=== PATIENT | male | born 1955 | race Caucasian/White ===

== ENCOUNTER 2017-01-25 14:49 | Emergency (ER) | payer MEDICARE ==
[2017-01-25] MEDS ORDERED: 0.9 % SODIUM CHLORIDE 1,000 ML BAG IV ONE (14:51)
[2017-01-25] MEDS ORDERED: HYDROMORPHONE HCL 1MG/ML **SYRINGE IVP ONE (14:53)
--- NOTE | 2017-01-25 14:59 | Emergency Department Record ---
History of Present Illness - General Chief Complaint: Fall Injury Stated Complaint: FELL OF ROOF (YESTERDAY) Time Seen by Provider: 01/25/17 14:50 Source: Patient Mode of Arrival: Ambulatory Limitations: No limitations - History of Present Illness Initial Comments: 61 yo male presents after a fall off his roof yesterday. He was trimming a branch that was rubbing his house. He states he fell landing on his feet and backside. He denies and LOC. Witnessed by a friend. He has pain from the mid back downward. He reports a history of back surgery at [facility] about 7 years ago. He has chronic pain, leg leg numbness, urinary incontinence from the prior medical history. He states no significant changes in those symptoms but his back pain is increased significantly. No other extremity complaints. His surgery was in 2009. He reports his surgeon is no longer in [place]. 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 Witnessed: No Place Fall Occurred: Home Loss of Consciousness: None Prolonged Down Time?: No Symptoms Prior to Fall: None Location: Back Quality: Aching Associated Symptoms: Denies - [place] Coma Scale Eye Response: (4) Open spontaneously Motor Response: (6) Obeys commands Verbal Response: (5) Oriented Oziel Total: 15 - Related Data Previous Rx's Medication Instructions Recorded Cyclobenzaprine HCl [Flexeril] 10 mg PO TID #20 tablet 01/25/17 Hydrocodone/Acetaminophen [[place] 1 each PO Q8H #20 tablet 01/25/17 7.5-325 Tablet] Allergies Allergy/AdvReac Type Severity Reaction Status Date / Time No Known Drug Allergies Allergy Verified 01/25/17 14:57 Review of Systems Constitutional: Denies: Chills, Fever, Malaise, Weakness Eyes: Denies: Eye discharge ENT: Denies: Congestion, Throat pain Respiratory: Denies: Cough Cardiovascular: Denies: Chest pain, Palpitations, Syncope Endocrine: Denies: Fatigue, Polydipsia, Polyuria Gastrointestinal: Denies: Abdominal pain, Diarrhea, Nausea, Vomiting Genitourinary: Denies: Dysuria, Frequency, Hematuria Musculoskeletal: Reports: Back pain. Denies: Neck pain Skin: Denies: Bruising, Change in color, Rash Neurological: Reports: Tingling (chronic left leg), Weakness (chronic left leg) . Denies: Headache, Numbness Psychiatric: Reports: Anxiety Hematological/Lymphatic: Denies: Blood Clots, Easy bleeding, Easy bruising Physical Exam - General General Appearance: Alert, Oriented x3, Cooperative, No acute distress, Other ( no confusion, clear speech, good historian regarding current and PMHx.) Limitations: No limitations - Head Head exam: Atraumatic, Normocephalic, Normal inspection - Eye Eye exam: Normal appearance, PERRL. negative: Conjunctival injection, Periorbital swelling, Periorbital tenderness, Scleral icterus - ENT ENT exam: Normal exam, Mucous membranes moist Ear exam: Normal external inspection Nasal Exam: Normal inspection Mouth exam: Normal external inspection Teeth exam: Normal inspection Throat exam: Normal inspection - Neck Neck exam: Normal inspection, Full ROM. negative: Tenderness - Respiratory Respiratory exam: Normal lung sounds bilaterally. negative: Respiratory distress, Rhonchi, Stridor, Wheezes - Cardiovascular Cardiovascular Exam: Regular rate, Normal rhythm, Normal heart sounds Peripheral Pulses: 2+: Radial (R), Radial (L) - GI/Abdominal GI/Abdominal exam: Soft. negative: Tenderness - Rectal Rectal exam: Deferred - exam: Deferred - Extremities Extremities exam: Full ROM, Normal capillary refill. negative: Normal inspection (atrophy of the left thigh), Joint swelling, Tenderness Image of Full Body: 1 - tenderness, no step off - Back Back exam: Reports: Muscle spasm, Paraspinal tenderness, Tenderness, Vertebral tenderness. Denies: Full ROM - Neurological Neurological exam: Alert, Motor sensory deficit (chronic LLE sensory loss), Normal gait, Oriented X3 - Psychiatric Psychiatric exam: Anxious - Skin Skin exam: Dry, Intact, Normal color, Warm Course - Reevaluation(s) Reevaluation #1: Due to mechanism Trauma Alert Activated No records on the [facility] EMR [facility] contacted for search for prior records 01/25/17 15:01 01/25/17 15:02 Reevaluation #2: 02/13/2009 L3 to S1 decompression and fusion Dr Olivia 01/25/17 15:24 No acute changes on the CBC. 01/25/17 15:29 Reevaluation #3: Pain improved to 2-3/10 HR improved to [address] appears relaxed and calm. NAD 01/25/17 15:35 CR/BUN and GFR in the normal range CK normal ETOH 0.233 HCO3 17 with AG 20 01/25/17 15:42 Reevaluation #4: The HCT was negative for acute fracture, small left frontal STS The Cervical Spine was negative for acute fracture, degen changes at C5-[address] was negative for any acute injury, fracture or PTx The Abdomen and Pelvis CT was negative for acute injury, fracture of the spine or hardware failure 01/25/17 15:55 HR now 89 01/25/17 16:02 The patient is doing very well He is up with controlled pain He will be referred to the [facility] Medical Decision Making - Lab Data Result diagrams: 01/25/17 15:00 01/25/17 15:00 Disposition Disposition: Discharge Clinical Impression: Low back strain Qualifiers: Encounter type: initial encounter Qualified Code(s): S39.012A - Strain of muscle, fascia and tendon of lower back, initial encounter Disposition: Home, Self-Care Condition: (1) Good Instructions: Low Back Strain (ED) Additional Instructions: Call the number provided and ask for follow up at the [facility] Return if you have uncontrolled pain or any new concerns Prescriptions: Cyclobenzaprine HCl [Flexeril] 10 mg PO TID #20 tablet Hydrocodone/Acetaminophen [[place] 7.5-325 Tablet] 1 each PO Q8H #20 tablet Referrals: MEGHA LARSON M.D. [MEDICAL DOCTOR] - Forms: Patient Portal Access Time of Disposition: 16:17 Quality - Quality Measures Quality Measures: N/A - Blood Pressure Screening View Details: Yes Blood Pressure Classification: Hypertensive Reading Systolic Measurement: 123 Diastolic Measurement: 99 Screening for High Blood Pressure: < Pre-Hypertensive BP, F/U Documented > [ G8950] Pre-Hypertensive Follow-up Interventions: Referral to alternative/primary care provider.
[2017-01-25 15:24] LABS: BASO % 0.3 % (0-6); EOS % 1.4 % (0-6); GRAN % 68.4 % (47-80); HEMATOCRIT 44.3 % (42.0-52.0); HEMOGLOBIN 15.1 gm/dl (14.0-18.0); LYMPH % 25.5 % (16-45); MEAN CELL VOLUME 90.4 fl (81-97); MEAN CORPUSCULAR HEMOGLOBIN 30.8 pg (27-33); MEAN CORPUSCULAR HGB CONC 34.1 g/dl (32-36); MEAN PLATELET VOLUME 10.2 fl (7.4-10.4); MONO % 4.4 % (0-9); PLATELET COUNT 295 K/uL (130-400); RED CELL DISTRIBUTION WIDTH 18.1 % (11.5-14.5); WHITE BLOOD COUNT W/O DIFF 10.5 K/uL (4.2-12.2)
[2017-01-25 15:37] LABS: INR 0.87; PARTIAL THROMBOPLASTIN TIME 35.3 SECONDS (24.5-39.1); PROTHROMBIN TIME (PATIENT) 9.4 SECONDS (9.5-12.1)
[2017-01-25 15:38] LABS: ALB/GLOB RATIO 1.3 (1.1-1.8); ALBUMIN 5.2 gm/dL (3.5-5.0); ALKALINE PHOSPHATASE 134 U/L (38-126); ALT/SGPT 66 U/L (21-72); ANION GAP 20.3 (7-16); AST/SGOT 66 U/L (17-59); BILIRUBIN,TOTAL 0.92 mg/dL (0.2-1.3); BLOOD UREA NITROGEN 10 mg/dL (9-20); CARBON DIOXIDE 17.7 mmol/L (22-30); CREATINE PHOSPHOKINASE 138 U/L (55-170); CREATININE 0.7 mg/dL (0.66-1.25); EST GLOMERULAR FILTRATION RATE > 60 ml/min; GLUCOSE,RANDOM 83 mg/dL (70-110); TOTAL PROTEIN 9.1 gm/dL (6.3-8.2)
[2017-01-25 15:40] LABS: ALCOHOL 0.233 g/dL (0-0.010)
[2017-01-25 15:45] LABS: CKMB 2.6 ug/L (0-6)
--- NOTE | 2017-01-26 13:49 | CT SCAN REPORT ---
EXAM: HEAD CT WITHOUT CONTRAST HISTORY: FELL OF ROOF TEN FEET HIGH YESTERDAY. NO LOSS OF CONSCIOUSNESS. TECHNIQUE: Contiguous axial images from the cerebral convexities to the foramen magnum were obtained without contrast. Comparison: None. Encounter: Initial. FINDINGS: Mild generalized atrophy of the brain. No acute intracranial hemorrhage, mass effect, or midline shift. No CT evidence of acute infarct. The ventricles, basal cisterns, and sulci are within normal limits. Soft tissue swelling left frontal scalp. No fracture. The paranasal sinuses are unremarkable. IMPRESSION: 1. NO ACUTE INTRACRANIAL PROCESS. 2. SMALL LEFT FRONTAL SCALP CONTUSION. JOB NUMBER: [id number] MTDD
--- NOTE | 2017-01-26 14:22 | CT SCAN REPORT ---
EXAM: ABDOMEN AND PELVIS CT WITH IV CONTRAST HISTORY: FELL OF ROOF TEN FEET HIGH, LOW BACK PAIN. TECHNIQUE: Contiguous axial images from the lung bases to the symphysis pubis were obtained after the uneventful intravenous administration of 100 ml of Omnipaque 300. Comparison: None. Encounter: Initial. FINDINGS: Decreased attenuation throughout the liver consistent with fatty infiltration. The spleen is unremarkable. 1 cm unilocular cyst upper pole left kidney. 2 mm nonobstructing calculus lower pole left kidney. Smaller cyst interpolar region left kidney. Nonobstructing 1 mm calculus mid right kidney. The adrenals, pancreas, and gallbladder are normal. The visualized loops of small and large bowel are of normal caliber with no wall thickening. Normal appendix. Mild colonic diverticulosis. No free intraperitoneal air or fluid. Moderate aortoiliac calcification. The prostate gland is enlarged and nodular in appearance measuring up to 4.2 x 4.0 cm. Posterior fusion from the L3 to S1 level. No acute fracture or hardware failure. IMPRESSION: 1. NO ACUTE PROCESS OF THE ABDOMEN OR PELVIS. 2. FATTY LIVER. 3. NONOBSTRUCTING INTRARENAL CALCULI. 4. OTHER INCIDENTAL FINDINGS. JOB NUMBER: [id number] MTDD
--- NOTE | 2017-01-26 14:25 | CT SCAN REPORT ---
EXAM: CHEST CT WITH IV CONTRAST HISTORY: FELL OF ROOF TEN FEET HIGH. LOW BACK PAIN. TECHNIQUE: Contiguous axial images from the thoracic inlet to the upper abdomen were obtained without contrast. Comparison: None. Encounter: Initial. FINDINGS: The lungs are clear. The heart is not enlarged and there is no pericardial effusion. Mild coronary artery calcification. No evidence of acute traumatic thoracic aortic injury. No enlarged lymph nodes in the thorax. No acute fracture. IMPRESSION: NO ACUTE INTRATHORACIC PROCESS. JOB NUMBER: [id number] MTDD
--- NOTE | 2017-01-26 14:31 | CT SCAN REPORT ---
EXAM: CERVICAL SPINE CT WITH TWO DIMENSIONAL REFORMATS HISTORY: FELL OF ROOF TEN FEET HIGH. TECHNIQUE: Contiguous axial images from the skull base to the T2 level were obtained without contrast. Sagittal and coronal two dimensional reformatted images were obtained for better anatomic delineation. Comparison: None. Encounter: Initial. FINDINGS: Anatomic alignment of the cervical spine. Severe disk disease at C5- C6 with disk space narrowing, end plate osteophytes and subcortical cysts. Moderate disk disease at C3-C4. The C1-C2 articulation appears appropriate and the odontoid process is intact. No acute fractures or subluxation. No narrowing of the osseous central canal at any level. Neural foraminal stenosis most pronounced at C3-C4 and C5-C6 on the right. IMPRESSION: 1. NO ACUTE FRACTURE OR SUBLUXATION OF THE CERVICAL SPINE. 2. MULTILEVEL DEGENERATIVE DISK DISEASE MOST PRONOUNCED AT C3-C4 AND C5-C6. 3. VARYING DEGREES OF NEURAL FORAMINAL STENOSIS. JOB NUMBER: [id number] MTDD
== END 2017-01-25 16:35 | disposition home or self-care (01) ==
LOC: ER 14:49
DX: S39.012A Strain of muscle, fascia and tendon of lower back, initial encounter (principal); W17.89XA Other fall from one level to another, initial encounter; Y92.008 Other place in unspecified non-institutional (private) residence as the place of occurrence of the external cause; Z79.899 Other long term (current) drug therapy
CPT/HCPCS: 70450; 71260; 72125; 74177; 80053; 80320; 82550; 82553; 85025; 85610; 85730; 96374; 99284; J1170; J7030

== ENCOUNTER 2017-05-27 15:12 | Emergency (ER) | payer SELFPAY ==
--- NOTE | 2017-05-27 15:16 | Emergency Department Record ---
History of Present Illness - General Stated Complaint: ABDOMINAL PAIN Time Seen by Provider: 05/27/17 15:14 Source: Patient Mode of Arrival: Ambulatory Limitations: No limitations - History of Present Illness Initial Comments: 61 yo male presents with left testicle ache for 2 weeks. He denies and trauma. The testicle was initially not tender. The last 2 days the testicle has become swollen and painful with pain radiating to the abdomen. No fevers. The swelling is limited to his left side. No fevers. No dysuria. No diarrhea. He has never had testicular swelling in the past. He does self cath his bladder due to a neurogenic bladder from a prior back surgery. MD Complaint: Abdominal pain -: Days(s) (pain for 2 days with swelling for about 2 weeks) Location: LLQ Radiation: LLQ Migration to: LLQ Severity: Moderate Quality: Aching Consistency: Constant Improves With: Nothing Worsens With: Other (worse with touching or moving the testicle) Associated Symptoms: Denies other symptoms - Related Data Previous Rx's Medication Instructions Recorded Hydrocodone/Acetaminophen [[place] 1 each PO Q6H #20 tablet 05/27/17 7.5-325 Tablet] Hydrocodone/Acetaminophen [[place] 1 each PO Q6H #20 tablet 05/27/17 7.5-325 Tablet] Ibuprofen [Motrin 600Mg] 600 mg PO Q6H #30 tablet 05/27/17 Levofloxacin [Levaquin] 750 mg PO DAILY #14 tab 05/27/17 Allergies Allergy/AdvReac Type Severity Reaction Status Date / Time No Known Drug Allergies Allergy Verified 05/27/17 15:25 Review of Systems Constitutional: Denies: Chills, Fever, Malaise, Weakness Eyes: Denies: Eye discharge ENT: Denies: Congestion, Throat pain Respiratory: Denies: Cough Cardiovascular: Denies: Chest pain, Palpitations, Syncope Endocrine: Denies: Fatigue, Polydipsia, Polyuria Gastrointestinal: Reports: As per HPI, Abdominal pain. Denies: Constipation, Diarrhea, Hematemesis, Hematochezia, Melena, Nausea, Vomiting Genitourinary: Reports: Testicular pain, Testicular mass (enlarged left testicle ). Denies: Discharge, Dysuria, Frequency, Hematuria Musculoskeletal: Denies: Arthralgia, Back pain, Neck pain Skin: Denies: Bruising, Change in color, Pruritus Neurological: Denies: Confusion, Headache Psychiatric: Denies: Anxiety Hematological/Lymphatic: Denies: Blood Clots, Easy bleeding, Easy bruising, Swollen glands Past Medical History - SOCIAL HISTORY Smoking Status: Current every day smoker Drug Use Detail:: Marijuana - RESPIRATORY Hx Respiratory Disorders: No - CARDIOVASCULAR Hx Cardio Disorders: No - NEURO Hx Neuro Disorders: No - GI Hx GI Disorders: No - Hx Genitourinary Disorders: No - ENDOCRINE Hx Endocrine Disorders: No - MUSCULOSKELETAL Hx Musculoskeletal Disorders: Yes Hx Back Injury: Yes - PSYCH Hx Psych Problems: No - HEMATOLOGY/ONCOLOGY Hx Hematology/Oncology Disorders: No Physical Exam - General General Appearance: Alert, Oriented x3, Cooperative, No acute distress Limitations: No limitations - Head Head exam: Atraumatic, Normocephalic, Normal inspection - Eye Eye exam: Normal appearance. negative: Conjunctival injection, Scleral icterus - ENT ENT exam: Normal exam, Mucous membranes moist Ear exam: Normal external inspection Nasal Exam: Normal inspection Mouth exam: Normal external inspection - Neck Neck exam: Normal inspection, Full ROM. negative: Tenderness - Respiratory Respiratory exam: Normal lung sounds bilaterally. negative: Respiratory distress - Cardiovascular Cardiovascular Exam: Regular rate, Normal rhythm, Normal heart sounds - GI/Abdominal GI/Abdominal exam: Soft, Tenderness. negative: Distended, Guarding - Rectal Rectal exam: Deferred - exam: Circumcision, Scrotal swelling (Left scrotal swelling, the scrotal tissue appears normal, no abnormal erythema, the scrobum is soft, the testicle is enlarged and firm), Testicular tenderness, Other (The left testicle is moderately enlarged with tenderness and very little cremasteric reflex, the right is non tender and not swollen with normal reflex). negative: Normal inspection Course - Reevaluation(s) Reevaluation #1: 05/27/17 15:26 STAT US ordered for left testicular swelling and tenderness 05/27/17 16:13 No acute changes on the BMP The prelim UA is N and LE positive 05/27/17 16:31 The CBC was reviewed The WBC count is 16 05/27/17 16:52 The US report is pending. The patient is resting very comfortably. Pain is well controlled. Given the CBC and UA indicate infection antibiotics ordered. 05/27/17 17:13 The US was reviewed. No torsion. The examination is consistent with epididymitis/orchitis with increased flow in the epididymal area. The patient is well appearing, and non toxic without fever He will be DC home on Levaquin 2 weeks A culture was sent on the UA He was advised on scrotal support, pain control, antibiotics, follow up and reasons to return or be seen He will be referred to the Urology Clinic at [facility] The patient is doing very well at [place] and is comfortable with the plan 05/27/17 17:25 Medical Decision Making - Lab Data Result diagrams: 05/27/17 15:47 05/27/17 15:47 Disposition Disposition: Discharge Clinical Impression: Epididymo-orchitis Disposition: Home, Self-Care Condition: (1) Good Instructions: Epididymo-Orchitis (ED) Additional Instructions: Return to the ER if you have increased pain, fever, swelling or concerns Use tight support underwear Take the antibiotics daily as instructed You are being referred to the Urology Clinic at [facility] Prescriptions: Hydrocodone/Acetaminophen [[place] 7.5-325 Tablet] 1 each PO Q6H #20 tablet Hydrocodone/Acetaminophen [[place] 7.5-325 Tablet] 1 each PO Q6H #20 tablet Ibuprofen [Motrin 600Mg] 600 mg PO Q6H #30 tablet Levofloxacin [Levaquin] 750 mg PO DAILY #14 tab Referrals: CECILY AMBROSIO M.D. [MEDICAL DOCTOR] - [facility] [Provider Group] Forms: Patient Portal Access Time of Disposition: 17:19 Quality - Quality Measures Quality Measures: N/A - Blood Pressure Screening Does Patient Have Any of the Following: No Blood Pressure Classification: Hypertensive Reading Systolic Measurement: 135 Diastolic Measurement: 91 Screening for High Blood Pressure: < Pre-Hypertensive BP, F/U Documented > [ G8950] Pre-Hypertensive Follow-up Interventions: Referral to alternative/primary care provider.
[2017-05-27] MEDS ORDERED: ONDANSETRON HCL IV 4 MG/2 ML VIAL IV ONE (15:19)
[2017-05-27] MEDS ORDERED: 0.9 % SODIUM CHLORIDE 1,000 ML BAG IV ONE (15:19)
[2017-05-27] MEDS ORDERED: KETOROLAC 30 MG/ML VIAL IVP ONE (15:19)
[2017-05-27] MEDS ORDERED: HYDROMORPHONE HCL 1 MG/ML SYRINGE IVP ONE (15:21)
[2017-05-27 15:51] LABS: URINE APPEARANCE CLEAR; URINE BILIRUBIN NEGATIVE (NEGATIVE); URINE BLOOD TRACE-I (NEGATIVE); URINE COLOR ORANGE; URINE GLUCOSE (UA) NEGATIVE (NEGATIVE); URINE KETONE TRACE (NEGATIVE); URINE LEUKOCYTE ESTERASE SMALL (NEGATIVE); URINE NITRITE POSITIVE (NEGATIVE)
[2017-05-27 15:53] LABS: HEMATOCRIT 42.5 % (42.0-52.0); HEMOGLOBIN 14.7 gm/dl (14.0-18.0); MEAN CELL VOLUME 93.6 fl (81-97); MEAN CORPUSCULAR HEMOGLOBIN 32.4 pg (27-33); MEAN CORPUSCULAR HGB CONC 34.6 g/dl (32-36); MEAN PLATELET VOLUME 10.5 fl (7.4-10.4); PLATELET COUNT 274 K/uL (130-400); RED BLOOD COUNT 4.54 M/uL (4.40-5.70); RED CELL DISTRIBUTION WIDTH 16.6 % (11.5-14.5); WHITE BLOOD COUNT W/O DIFF 16.9 K/uL (4.2-12.2)
[2017-05-27 15:58] LABS: BLOOD UREA NITROGEN 9 mg/dL (6-20); CREATININE 0.5 mg/dL (0.7-1.2); EST GLOMERULAR FILTRATION RATE > 60 mL/min
[2017-05-27 16:01] LABS: GLUCOSE,RANDOM 119 mg/dL (74-109)
[2017-05-27 16:16] LABS: URINE BACTERIA 3+; URINE MUCUS MODERATE
[2017-05-27] MEDS ORDERED: CEFTRIAXONE SODIUM 1 GM in 0.9 % SODIUM CHLORIDE 100ML 100 ML IVPB ONE (16:50)
[2017-05-27] MEDS ORDERED: LEVOFLOXACIN 500 MG TABLET PO ONE (16:51)
--- NOTE | 2017-05-28 11:04 | ULTRASOUND REPORT ---
DATE: 05/27/2017 at 1518. EXAM: ULTRASOUND OF THE SCROTUM WITH DUPLEX DOPPLER. HISTORY: Painful left scrotum. COMPARISON: None. TECHNIQUE: Realtime grayscale sonographic imaging of the scrotum was performed with duplex Doppler and spectral analysis. FINDINGS: The testicles appear homogeneous with no focal mass and normal echogenicity. Moderate to large anechoic left hydrocele. Asymmetrically prominent left epididymis. Asymmetrically increased color flow to the left epididymis and left testicle. The right testicle measures 3.9 x 2.4 x 2.6 cm, and the left testicle measures 4.1 x 3.1 x 2.9 cm. Color flow to the testicles, left greater than right. Spectral analysis demonstrates unidirectional arterial venous waveforms within the testicles with no evidence of torsion. IMPRESSION: MODERATE TO LARGE LEFT HYDROCELE WITH ENLARGEMENT OF THE LEFT EPIDIDYMIS AND INCREASED COLOR FLOW TO THE LEFT TESTICLE AND EPIDIDYMIS CONSISTENT WITH ACUTE EPIDIDYMAL ORCHITIS. JOB NUMBER: [id number] MTDD
== END 2017-05-27 17:30 | disposition home or self-care (01) ==
LOC: ER 15:12
DX: N45.3 Epididymo-orchitis (principal); R10.32 Left lower quadrant pain; N50.812 Left testicular pain
CPT/HCPCS: 99284 ×2; 96365; 96375; 80048; 81001; 85027; 76870; J1885; J2405; J1170; J7030